=== PATIENT | male | born 1955 | race Hispanic/Latino ===

== ENCOUNTER 2018-08-07 18:27 | Emergency (ER) | payer OTHER ==
[~2018-08-07] VITALS: Ht 170.2 cm; Wt 80.3 kg
[2018-08-07] MEDS ORDERED: ASPIRIN 81 MG CHEW TAB PO ONE (18:45)
[2018-08-07] MEDS ORDERED: HYDROCODONE/APAP 7.5MG-325MG 1 EA TAB PO PRN (18:45)
[2018-08-07] MEDS ORDERED: LASIX40 MG PO (18:52)
[2018-08-07] MEDS ORDERED: ATORVASTATIN CA80 MG PO (18:52)
[2018-08-07] MEDS ORDERED: ENTRESTO PO (18:52)
[2018-08-07] MEDS ORDERED: ELIQUIS PO (18:52)
[2018-08-07] MEDS ORDERED: PEPCID20 MG PO (18:52)
[2018-08-07] MEDS ORDERED: ALDACTONE25 MG PO (18:52)
[2018-08-07] MEDS ORDERED: CYCLOBENZAPRINE HCL 10 MG TAB PO ONE (19:00)
[2018-08-07 19:04] LABS: BASOPHILS % 0.2 % (0.0-1.0); EOSINOPHILS % 0.1 % (0.0-6.0); HEMATOCRIT 44.4 % (38.2-49.6); HEMOGLOBIN 15.3 g/dL (14.0-18.0); LYMPHOCYTES # (AUTO) 0.9 (1.0-3.2); LYMPHOCYTES % 7.9 % (18.0-39.1); MEAN CORPUSCULAR HGB CONC 34.5 g/dL (31-35); MEAN CORPUSCULAR VOLUME 92.9 fL (81-99); MONOCYTES # (AUTO) 0.5 (0.2-0.8); MONOCYTES % 4.3 % (4.4-11.3); NEUTROPHILS # (AUTO) 10.3 (2.1-6.9); PLATELET COUNT 205 x10e3/uL (140-360); RED BLOOD COUNT 4.78 x10e6/uL (4.3-5.7); RED CELL DISTRIBUTION WIDTH 12.7 % (11.7-14.4)
[2018-08-07 19:10] LABS: INR 0.94; PROTHROMBIN TIME 13.4 seconds (11.9-14.5)
[2018-08-07 19:11] LABS: PARTIAL THROMBOPLASTIN TIME 30.2 seconds (23.8-35.5)
[2018-08-07 19:19] LABS: ALANINE AMINOTRANSFERASE 27 IU/L (0-55); ALBUMIN 4.3 g/dL (3.5-5.0); ALBUMIN/GLOBULIN RATIO 1.3 (0.8-2.0); ALKALINE PHOSPHATASE 54 IU/L (40-150); ANION GAP 12.4 mmol/L (8-16); BLOOD UREA NITROGEN 25 mg/dL (7-26); BUN/CREATININE RATIO 16 (6-25); CALCIUM 9.5 mg/dL (8.4-10.2); CARBON DIOXIDE 28 mmol/L (22-29); CHLORIDE 97 mmol/L (98-107); CREATINE KINASE 465 IU/L (30-200); CREATININE, SERUM 1.59 mg/dL (0.72-1.25); EST GLOMERULAR FILTRATION RATE 44 ML/MIN (60-); GLUCOSE 121 mg/dL (74-118); POTASSIUM 4.4 mmol/L (3.5-5.1); SODIUM 133 mmol/L (136-145)
[2018-08-07 19:19] LABS: CLARITY,URINE SL CLOUDY (CLEAR); COLOR,URINE YELLOW (YELLOW); LEUKOCYTE ESTERASE ,URINE NEGATIVE (NEGATIVE); NITRITE,URINE NEGATIVE (NEGATIVE); PROTEIN,URINE DIPSTICK TRACE (NEGATIVE)
[2018-08-07 19:20] LABS: BILIRUBIN,URINE NEGATIVE (NEGATIVE); KETONES,URINE NEGATIVE (NEGATIVE); URINE UROBILINOGEN 0.2 mg/dL (0.2 - 1)
[2018-08-07 19:35] LABS: RBC,URINE 0-5 /HPF (0-5)
--- NOTE | 2018-08-07 20:08 | Diagnostic Imaging Report ---
Bilateral rib series 8 - views with chest AP view HISTORY: Pain. Trauma. Posterior lower rib cage pain. COMPARISON: None FINDINGS: Median sternotomy wires. Cardiac valve prosthesis. The cardiac silhouette is moderately enlarged. Left basilar linear atelectasis. Left upper lobe calcified granulomata. No displaced fracture. Osseous alignment is within normal limits. Multilevel degenerative changes of the thoracic spine. IMPRESSION: No acute displaced rib fracture. Signed by: Dr. Ashok Murillo M.D. on 08/07/2018 8:05 PM
[2018-08-07 20:14] VITALS: BP 115/79
== END 2018-08-07 20:22 | disposition home or self-care (01) ==
LOC: ER 18:27
DX: M54.6 Pain in thoracic spine (principal); I10 Essential (primary) hypertension; I50.9 Heart failure, unspecified; I25.10 Atherosclerotic heart disease of native coronary artery without angina pectoris; Z95.1 Presence of aortocoronary bypass graft; Z95.4 Presence of other heart-valve replacement
CPT/HCPCS: 36415; 71101; 80053; 81001; 82550; 82553; 84484; 85025; 85610; 85730; 87086; 99284

== ENCOUNTER 2018-09-19 10:29 | Inpatient (IN) | payer BC, OTHER ==
[2018-09-18] MEDS: FAMOTIDINE 20 MG TAB PO SCH (20:30)
[~2018-09-19] VITALS: Ht 170.2 cm; Wt 81.3 kg
[~2018-09-19 10:29] MED LIST: ALDACTONE25 MG PO; ATORVASTATIN CA80 MG PO; ELIQUIS PO; ENTRESTO PO; LASIX40 MG PO; PEPCID20 MG PO
--- OUTSIDE RECORDS SUMMARY | 2018-09-19 10:32 | XMS REPORT ---
[facility] Address Unknown Phone Unavailable Care Team Providers Care Ethologist Name Role Phone Gini LEDEZMA Unavailable Unavailable Problems This patient has no known problems. Allergies, Adverse Reactions, Alerts This patient has no known allergies or adverse reactions. Medications This patient has no known medications. Results Test Description Test Time Test Comments Text Results Atomic Results Result Comments RIBS UNILAT W/CXR 2018-08-07 20:02:00 [place] [address] Patient Name: XUAN BURRELL MR #: [id number] : 1955 Age/Sex: 63/M Req #: [id number] Adm Physician: Ordered by: ARIANA GUERRERO CLINICAL ASSESSMENT MANAGER Report #: [id number] Location: ER Room/Bed: Procedure: [id number] DX/RIBS UNILAT W/CXR Exam Date: 08/07/18 Exam Time: 190 REPORT STATUS: Signed Bilateral rib series 8 - views with chest AP view HI STORY: Pain. Trauma. Posterior lower rib cage pain. COMPARISON: None FINDINGS: Median sternotomy wires. Cardiac valve prosthesis. The cardiac silhouette is moderately enlarged. Left basilar linear atelectasis. Left upper lobe calcified granulomata. No displaced fracture. Osseous alignment is within normal limits. Multilevel degenerative changes of the thoracic spine. IMPRESSION: No acute displaced rib fracture. Signed by: Dr. Ashok Stubbs M.D. on 08/07/2018 8:05 PM Dictated By: BJ STUBBS MD, MD 04 Transcribed By: RICO on 08/07/182004 COPY TO: ARIANA GUERRERO NP
[2018-09-19] MEDS ORDERED: VANCOMYCIN 1GM/NS 250 ML 250 ML IV STA (10:46)
[2018-09-19] MEDS ORDERED: SODIUM CHLORIDE 0.9% 1000ML 1,000 ML IV STA (10:46)
[2018-09-19 11:22] LABS: BASOPHILS % 0.3 % (0.0-1.0); EOSINOPHILS # (AUTO) 0.1 (0.0-0.4); EOSINOPHILS % 1.5 % (0.0-6.0); HEMATOCRIT 38.8 % (38.2-49.6); HEMOGLOBIN 13.2 g/dL (14.0-18.0); LYMPHOCYTES # (AUTO) 1.2 (1.0-3.2); LYMPHOCYTES % 16.1 % (18.0-39.1); MEAN CORPUSCULAR HEMOGLOBIN 32.4 pg (28-32); MEAN CORPUSCULAR VOLUME 95.3 fL (81-99); MONOCYTES # (AUTO) 0.7 (0.2-0.8); MONOCYTES % 8.6 % (4.4-11.3); NEUTROPHILS # (AUTO) 5.5 (2.1-6.9); PLATELET COUNT 274 x10e3/uL (140-360); RED BLOOD COUNT 4.07 x10e6/uL (4.3-5.7); RED CELL DISTRIBUTION WIDTH 11.9 % (11.7-14.4)
[2018-09-19] MEDS: CEFEPIME HCL 1 GM VIAL IV SCH ×2 (11:27→23:00)
[2018-09-19 11:44] LABS: ALANINE AMINOTRANSFERASE 49 IU/L (0-55); ALBUMIN 3.2 g/dL (3.5-5.0); ALBUMIN/GLOBULIN RATIO 0.8 (0.8-2.0); ALKALINE PHOSPHATASE 60 IU/L (40-150); ANION GAP 14.8 mmol/L (8-16); BLOOD UREA NITROGEN 18 mg/dL (7-26); BUN/CREATININE RATIO 16 (6-25); CARBON DIOXIDE 27 mmol/L (22-29); CHLORIDE 100 mmol/L (98-107); CREATINE KINASE 167 IU/L (30-200); CREATININE, SERUM 1.15 mg/dL (0.72-1.25); EST GLOMERULAR FILTRATION RATE > 60 ML/MIN (60-); GLUCOSE 99 mg/dL (74-118); LIPASE 61 U/L (8-78); POTASSIUM 3.8 mmol/L (3.5-5.1); SODIUM 138 mmol/L (136-145)
[2018-09-19] MEDS ORDERED: VANCOMYCIN HCL 1GM/NS 250 ML BAG IV SCH (11:45)
[2018-09-19] MEDS ORDERED: CEFEPIME HCL 1 GM VIAL IV SCH (11:45)
[2018-09-19] MEDS ORDERED: VANCOMYCIN 1GM/NS 250 ML 250 ML IV SCH (13:00)
--- NOTE | 2018-09-19 13:19 | Diagnostic Imaging Report ---
EXAMINATION: CT of the chest with contrast, PE protocol. TECHNIQUE: Spiral CT images of the chest were performed from the lung apices through the level of the adrenal glands after the IV administration of 77 cc of Isovue-370. Thin section reconstructions were obtained with special concentration on the pulmonary arteries. COMPARISON: Chest radiograph and rib radiographs 08/07/2018 CLINICAL HISTORY:Cough, hemoptysis DISCUSSION: Vasculature: The main pulmonary artery, right and left pulmonary arteries, and their visualized lobar and segmental branches are patent, without filling defect, though evaluation of the lower lobe segmental arteries is slightly limited secondary to respiratory motion artifact. The pulmonary outflow tract is of normal caliber. There is no ectasia or aneurysmal dilatation of the thoracic aorta. Postsurgical changes of coronary artery bypass and mitral valve replacement. Lungs: Diffuse perihilar predominant groundglass opacities with smooth interlobular septal thickening. More focal linear and triangular opacities are noted in the bilateral lung bases. Calcified granuloma left upper lobe. Airways: Trachea, mainstem bronchi, and central lobar and segmental bronchi are patent without filling defects. Pleura: Small simple bilateral pleural effusions. No pneumothorax. Heart and mediastinum: Marked cardiomegaly without disproportionate right ventricular dilatation or intraventricular septal bowing. Postsurgical findings as above. Atherosclerotic calcifications of the [place] coronary arteries. Mild hilar and mediastinal lymphadenopathy, with the largest lymph node at the right lower paratracheal station measuring 1.5 cm short axis. No pericardial effusion. Visualized portions of the thyroid gland appear normal Abdomen: Small radiopaque calculi in the dependent portion of the gallbladder. Visualized portions of the liver, spleen, pancreas, and adrenals are unremarkable. Small sliding hiatal hernia. Bones and soft tissues: No focal soft tissue abnormalities. No osseous destructive lesions. Median sternotomy changes and multilevel degenerative disc changes of the thoracic spine. IMPRESSION: No pulmonary embolus to the level of the segmental branch pulmonary arteries. Marked cardiomegaly with postsurgical changes of the mediastinum, interstitial pulmonary edema, and small bilateral pleural effusions. Hilar and mediastinal lymphadenopathy is likely reactive. Cholelithiasis. Signed by: Dr. Ryan Sung M.D. on 09/19/2018 1:16 PM
[2018-09-19 13:26] VITALS: BP 94/72
[2018-09-19 13:32] VITALS: BP 94/72
[2018-09-19 13:34] VITALS: BP 94/72
[2018-09-19] MEDS ORDERED: SODIUM CHLORIDE 0.9% 50ML 50 ML ONE (14:10)
[2018-09-19] MEDS ORDERED: IOPAMIDOL 370 MG/ML 200 ML INFUS..BTL INJ ONE (14:11)
[2018-09-19 15:59] VITALS: BP 103/58
[2018-09-19] MEDS ORDERED: HYDRALAZINE HCL 20 MG/ML VIAL IV PRN (19:15)
[2018-09-19] MEDS ORDERED: ONDANSETRON HCL INJ 2 MG/ML VIAL IV PRN (19:15)
[2018-09-19 20:00] VITALS: BP 92/55
[2018-09-19 20:30] VITALS: BP 92/55
[2018-09-19] MEDS: GUAIFENESIN 600MG/DEXTROMETHORPHAN 30MG TABSR PO SCH (20:30)
[2018-09-19 20:41] LABS: CREATINE KINASE MB 1.9 ng/mL (0-5.0)
[2018-09-20] VITALS: BP 105/71
[2018-09-20] MEDS: GUAIFENESIN 600MG/DEXTROMETHORPHAN 30MG TABSR PO SCH ×5 (01:00→23:00)
[2018-09-20 04:00] VITALS: BP 90/53
[2018-09-20 04:00] LABS: BASOPHILS % 0.2 % (0.0-1.0); EOSINOPHILS # (AUTO) 0.2 (0.0-0.4); EOSINOPHILS % 3.3 % (0.0-6.0); HEMATOCRIT 36.7 % (38.2-49.6); HEMOGLOBIN 12.4 g/dL (14.0-18.0); LYMPHOCYTES # (AUTO) 1.4 (1.0-3.2); LYMPHOCYTES % 21.7 % (18.0-39.1); MEAN CORPUSCULAR HEMOGLOBIN 32.1 pg (28-32); MEAN CORPUSCULAR HGB CONC 33.8 g/dL (31-35); MEAN CORPUSCULAR VOLUME 95.1 fL (81-99); MONOCYTES # (AUTO) 0.5 (0.2-0.8); MONOCYTES % 8.5 % (4.4-11.3); NEUTROPHILS # (AUTO) 4.1 (2.1-6.9); NEUTROPHILS % 65.7 % (38.7-80.0); PLATELET COUNT 258 x10e3/uL (140-360); RED BLOOD COUNT 3.86 x10e6/uL (4.3-5.7); RED CELL DISTRIBUTION WIDTH 12.1 % (11.7-14.4)
[2018-09-20 04:14] LABS: ANION GAP 13.1 mmol/L (8-16); BLOOD UREA NITROGEN 16 mg/dL (7-26); BUN/CREATININE RATIO 16 (6-25); CALCIUM 8.5 mg/dL (8.4-10.2); CARBON DIOXIDE 25 mmol/L (22-29); CHLORIDE 105 mmol/L (98-107); CREATININE, SERUM 1.01 mg/dL (0.72-1.25); EST GLOMERULAR FILTRATION RATE > 60 ML/MIN (60-); GLUCOSE 95 mg/dL (74-118); MAGNESIUM 2.2 MG/DL (1.3-2.1); POTASSIUM 4.1 mmol/L (3.5-5.1); SODIUM 139 mmol/L (136-145)
[2018-09-20 04:38] LABS: FREE T4 (FREE THYROXINE) 1.23 ng/dL (0.9-1.8); THYROID STIMULATING HORMONE 0.813 uIU/mL (0.350-4.940)
[2018-09-20 04:44] LABS: CREATINE KINASE 144 IU/L (30-200)
[2018-09-20 05:02] LABS: B-TYPE NATRIURETIC PEPTIDE2 829.5 pg/mL (0-100)
[2018-09-20 07:45] VITALS: BP 117/68
[2018-09-20] MEDS ORDERED: SODIUM CHLORIDE 0.9% 250ML 250 ML ONE (08:43)
[2018-09-20 09:00] VITALS: BP 117/68
[2018-09-20] MEDS ORDERED: NON-FORMULARY MEDICATION ([Eliquis] 5 MG) PO SCH (09:00)
[2018-09-20] MEDS ORDERED: ONDANSETRON HCL INJ 2 MG/ML VIAL IV PRN (09:00)
[2018-09-20] MEDS ORDERED: VANCOMYCIN HCL 1GM/NS 250 ML BAG IV SCH (09:00)
[2018-09-20] MEDS ORDERED: ACETAMINOPHEN 325 MG TAB PO PRN (09:00)
[2018-09-20] MEDS ORDERED: HYDRALAZINE HCL 20 MG/ML VIAL IV PRN (09:00)
[2018-09-20] MEDS: VANCOMYCIN 1GM/NS 250 ML 250 ML IV SCH (09:02)
[2018-09-20] MEDS: SPIRONOLACTONE 25 MG TAB PO SCH ×2 (09:02→16:48)
[2018-09-20] MEDS: APIXABAN 5 MG TABLET PO SCH ×2 (09:02→16:48)
[2018-09-20] MEDS: FAMOTIDINE 20 MG TAB PO SCH ×2 (09:02→16:47)
[2018-09-20 11:00] VITALS: BP 100/60
[2018-09-20] MEDS: CEFEPIME HCL 1 GM VIAL IV SCH ×2 (11:24→22:32)
[2018-09-20] MEDS ORDERED: ALBUTEROL/IPRATROPIUM 3 ML NEB NEB SCH (13:00)
[2018-09-20] MEDS: LEVOFLOXACIN 750MG/D5W 150ML 150 ML IV SCH (16:47)
[2018-09-20] MEDS: FUROSEMIDE 40 MG TAB PO SCH (16:48)
[2018-09-20] MEDS: IPRATROPIUM BROMIDE 0.02% 2.5 ML NEB NEB SCH (19:23)
[2018-09-20] MEDS: LEVALBUTEROL HCL SOLN NEBU 1.25 MG/3 ML NEB INH SCH (19:23)
[2018-09-20 20:00] VITALS: BP 109/68
[2018-09-20] MEDS ORDERED: NON-FORMULARY MEDICATION (Atorvastatin Calcium 80 MG) PO SCH (21:00)
[2018-09-20] MEDS: ATORVASTATIN 40 MG TAB PO SCH (21:00)
[2018-09-21] VITALS: BP 97/67
[2018-09-21] MEDS: IPRATROPIUM BROMIDE 0.02% 2.5 ML NEB NEB SCH ×4 (02:10→19:00)
[2018-09-21] MEDS: LEVALBUTEROL HCL SOLN NEBU 1.25 MG/3 ML NEB INH SCH ×4 (02:10→19:00)
[2018-09-21 04:00] VITALS: BP 107/69
[2018-09-21] MEDS: GUAIFENESIN 600MG/DEXTROMETHORPHAN 30MG TABSR PO SCH ×4 (05:18→23:18)
[2018-09-21 06:21] LABS: BASOPHILS % 0.3 % (0.0-1.0); EOSINOPHILS # (AUTO) 0.1 (0.0-0.4); EOSINOPHILS % 2.1 % (0.0-6.0); HEMATOCRIT 37.3 % (38.2-49.6); HEMOGLOBIN 12.3 g/dL (14.0-18.0); LYMPHOCYTES # (AUTO) 1.3 (1.0-3.2); LYMPHOCYTES % 19.1 % (18.0-39.1); MEAN CORPUSCULAR HEMOGLOBIN 31.9 pg (28-32); MEAN CORPUSCULAR VOLUME 96.6 fL (81-99); MONOCYTES # (AUTO) 0.5 (0.2-0.8); MONOCYTES % 7.3 % (4.4-11.3); NEUTROPHILS # (AUTO) 4.6 (2.1-6.9); NEUTROPHILS % 70.6 % (38.7-80.0); PLATELET COUNT 266 x10e3/uL (140-360); RED BLOOD COUNT 3.86 x10e6/uL (4.3-5.7); RED CELL DISTRIBUTION WIDTH 12.3 % (11.7-14.4)
[2018-09-21 06:42] LABS: ANION GAP 15.3 mmol/L (8-16); BLOOD UREA NITROGEN 18 mg/dL (7-26); BUN/CREATININE RATIO 16 (6-25); CALCIUM 9.5 mg/dL (8.4-10.2); CARBON DIOXIDE 29 mmol/L (22-29); CHLORIDE 102 mmol/L (98-107); CREATININE, SERUM 1.12 mg/dL (0.72-1.25); EST GLOMERULAR FILTRATION RATE > 60 ML/MIN (60-); GLUCOSE 104 mg/dL (74-118); MAGNESIUM 2.4 MG/DL (1.3-2.1); POTASSIUM 4.3 mmol/L (3.5-5.1); SODIUM 142 mmol/L (136-145)
[2018-09-21] MEDS: ACETYLCYSTEINE 20% INHAL SOLN 30 ML VIAL INH SCH ×3 (08:00→19:00)
[2018-09-21 08:05] VITALS: BP 118/76
[2018-09-21] MEDS: FAMOTIDINE 20 MG TAB PO SCH ×2 (08:40→16:05)
[2018-09-21] MEDS: SPIRONOLACTONE 25 MG TAB PO SCH ×2 (08:40→16:05)
[2018-09-21] MEDS: VANCOMYCIN 1GM/NS 250 ML 250 ML IV SCH (08:40)
[2018-09-21] MEDS: APIXABAN 5 MG TABLET PO SCH ×2 (08:40→16:05)
[2018-09-21] MEDS: FUROSEMIDE 40 MG TAB PO SCH ×2 (08:40→16:05)
[2018-09-21] MEDS: CEFEPIME HCL 1 GM VIAL IV SCH ×2 (10:00→23:10)
[2018-09-21 11:31] VITALS: BP 120/78
[2018-09-21] MEDS: LEVOFLOXACIN 750MG/D5W 150ML 150 ML IV SCH (13:02)
[2018-09-21 15:28] VITALS: BP 115/74
[2018-09-21 20:00] VITALS: BP 117/76
[2018-09-21] MEDS: ATORVASTATIN 40 MG TAB PO SCH (21:18)
[2018-09-21] MEDS ORDERED: SODIUM CHLORIDE 0.9% 50ML 50 ML ONE (22:30)
[2018-09-21] MEDS ORDERED: SODIUM CHLORIDE 0.9% 250ML 250 ML ONE (23:02)
[2018-09-22] VITALS: BP 99/63
[2018-09-22] MEDS: IPRATROPIUM BROMIDE 0.02% 2.5 ML NEB NEB SCH ×3 (00:35→12:00)
[2018-09-22] MEDS: LEVALBUTEROL HCL SOLN NEBU 1.25 MG/3 ML NEB INH SCH ×3 (00:35→12:00)
[2018-09-22] MEDS: ACETYLCYSTEINE 20% INHAL SOLN 30 ML VIAL INH SCH ×3 (01:00→13:00)
[2018-09-22 04:00] VITALS: BP 101/60
[2018-09-22 04:19] LABS: BASOPHILS % 0.4 % (0.0-1.0); EOSINOPHILS # (AUTO) 0.2 (0.0-0.4); EOSINOPHILS % 2.4 % (0.0-6.0); HEMATOCRIT 36.3 % (38.2-49.6); HEMOGLOBIN 12.1 g/dL (14.0-18.0); LYMPHOCYTES # (AUTO) 1.1 (1.0-3.2); LYMPHOCYTES % 14.2 % (18.0-39.1); MEAN CORPUSCULAR HEMOGLOBIN 32.1 pg (28-32); MEAN CORPUSCULAR HGB CONC 33.3 g/dL (31-35); MEAN CORPUSCULAR VOLUME 96.3 fL (81-99); MONOCYTES # (AUTO) 0.6 (0.2-0.8); MONOCYTES % 7.1 % (4.4-11.3); NEUTROPHILS # (AUTO) 5.9 (2.1-6.9); NEUTROPHILS % 75.3 % (38.7-80.0); PLATELET COUNT 280 x10e3/uL (140-360); RED BLOOD COUNT 3.77 x10e6/uL (4.3-5.7); RED CELL DISTRIBUTION WIDTH 12.4 % (11.7-14.4)
[2018-09-22 04:37] LABS: ANION GAP 12.8 mmol/L (8-16); CALCIUM 8.9 mg/dL (8.4-10.2); CREATININE, SERUM 1.42 mg/dL (0.72-1.25); POTASSIUM 3.8 mmol/L (3.5-5.1)
[2018-09-22] MEDS: GUAIFENESIN 600MG/DEXTROMETHORPHAN 30MG TABSR PO SCH ×2 (06:37→12:28)
[2018-09-22] MEDS: FAMOTIDINE 20 MG TAB PO SCH (06:38)
[2018-09-22 07:51] VITALS: BP 107/70
[2018-09-22 08:15] VITALS: BP 107/70
[2018-09-22] MEDS: FUROSEMIDE 40 MG TAB PO SCH (09:22)
[2018-09-22] MEDS: APIXABAN 5 MG TABLET PO SCH (09:22)
[2018-09-22] MEDS: VANCOMYCIN 1GM/NS 250 ML 250 ML IV SCH (09:22)
[2018-09-22] MEDS: SPIRONOLACTONE 25 MG TAB PO SCH (09:22)
[2018-09-22] MEDS ORDERED: LEVAQUIN500 MG PO (11:28)
[2018-09-22] MEDS ORDERED: ALBUTEROL S5 MG/1 ML INH (11:29)
[2018-09-22] MEDS ORDERED: MUCINEX DM ER1 EACH PO (11:29)
[2018-09-22] MEDS ORDERED: PROAIR HFA INH8.5 GM INH (11:32)
[2018-09-22 11:34] VITALS: BP 117/77
[2018-09-22] MEDS ORDERED: FUROSEMIDE INJ 10 MG/ML 4 ML VIAL IV ONE (12:00)
[2018-09-22] MEDS: CEFEPIME HCL 1 GM VIAL IV SCH (12:28)
[2018-09-22] MEDS ORDERED: POTASSIUM CHLORIDE 20 MEQ TAB CR PO ONE (12:30)
--- NOTE | 2018-09-23 08:29 | Discharge Summary ---
ADMISSION DIAGNOSES 1. Pneumonia, failed outpatient treatment. 2. Hypertension. 3. Hyperlipidemia. 4. Coronary artery disease with stents. 5. Elevated BNP. 6. Zbwrx-yg-daqhilh systolic congestive heart failure. 7. Hypermagnesemia. DISCHARGE DIAGNOSES 1. Pneumonia, failed outpatient treatment. 2. Hypertension. 3. Hyperlipidemia. 4. Coronary artery disease with stents. 5. Elevated BNP. 6. Wuunx-hm-lsjtsys systolic congestive heart failure. 7. Hypermagnesemia. 8. Hyponatremia. 9. Acute kidney injury. HISTORY: Patient has a history of hyperlipidemia, hypertension, CAD with stent, chronic systolic CHF. SURGICAL HISTORY: in 20___. FAMILY HISTORY: Noncontributory. SOCIAL HISTORY: Noncontributory. HOSPITAL COURSE: A 63-year-old Z-Florentino. He returned yesterday and his PCP did a chest x-ray. The PCP sent him to the ER for pneumonia. On admission, patient was started on cefepime, Levaquin, and Mucinex and nebs. Sputum culture was obtained which was negative. Patient had an echo that showed EF of 20% to 25%, mild to moderate MR, aortic insufficiency, moderate TR, and mild PI. CT of the chest showed no pulmonary embolus of the mediastinum. Bilateral pleural effusion was negative. Sputum culture negative. After couple of days of IV antibiotics, patient is feeling much better. He will discharge home follow up with primary care in 1 to 2 weeks. Patient's and daughter understand discharge instructions and agree to plan. Vital signs stable. Patent afebrile. Dictated by: Karley Rodriguez NP MILAD OWENS MD Job#: [id number] VAS
== END 2018-09-22 13:04 | disposition home or self-care (01) | DRG 193 ==
LOC: ER 10:29 → ERHOLD 12:28 → IMCU 12:56 → OBSVTOIN 09-20 08:30 → MED/SURG2 09-21 17:52
PROVIDERS: ADMIT Internal Medicine; ATTEND Internal Medicine
DX: J18.9 Pneumonia, unspecified organism (principal); I50.23 Acute on chronic systolic (congestive) heart failure; N17.9 Acute kidney failure, unspecified; E87.1 Hypo-osmolality and hyponatremia; I11.0 Hypertensive heart disease with heart failure; E83.41 Hypermagnesemia; I25.10 Atherosclerotic heart disease of native coronary artery without angina pectoris; Z95.5 Presence of coronary angioplasty implant and graft; E78.5 Hyperlipidemia, unspecified; Z95.1 Presence of aortocoronary bypass graft
CPT/HCPCS: 36415; 71260; 80048; 80053; 82550; 82553; 82948; 83036; 83690; 83735; 83880; 84439; 84443; 84484; 85025; 87040; 87070; 87205; 93306; 94640; 99284; G0378; J0692; J1940; J3370; J7030; J7050; Q9967